=== PATIENT | male | born 1950 | race Caucasian/White ===

== ENCOUNTER 2025-06-20 14:25 | Outpatient (CLI) | payer OTHER ==
[~2025-06-20 14:25] MED LIST: ASA81 MG PO; ATORVASTATIN CA20 MG PO; FLOMAX; GLIPIZIDE2.5 MG/BO1 PO; GLIPIZIDE2.5 MG/BOT PO; MELOXICAM15 MG; NABUMETONE25 GM MC; NABUMETONE500 MG PO; PERCOCET 5/3251 TAB PO; PROSTATE PO; RAMIPRIL1.25 MG PO; [UNRECOGNIZED DRUG - OTHER] PO
== END 2025-06-20 14:29 | disposition home or self-care (01) ==
LOC: SONOGRAMA 14:25
PROVIDERS: ATTEND Pathology Anatomic Pathology & Clinical Pathology
DX: D34 Benign neoplasm of thyroid gland (principal); E04.2 Nontoxic multinodular goiter